=== PATIENT | female | born 1965 | race Caucasian/White ===

== ENCOUNTER 2019-12-14 18:43 | Emergency (ER) | payer BC, SELFPAY ==
[2019-12-14 19:28] VITALS: BP 121/80; PULSE 94; RESP 16; TEMP 36.6; O2SAT 95; BMI 16.7
--- NOTE | 2019-12-14 19:38 | ED_ITS ---
HPI - Anxiety General: Chief Complaint: Anxiety Stated Complaint: stress Time Seen by Provider: 12/14/19 19:35 History of Present Illness: HPI narrative: Sheila is a nice 54-year-old female who comes in complaining of anxiety. She states she has generalized anxiety but it is been made worse recently from difficulty sleeping. She denies any homicidal or suicidal ideation. She states she is not depressed. She does not have a regular doctor to go see for these issues. She also relates that she injured her foot about 3 weeks ago after he was stepped on. She continues to have pain would like that evaluated as well. Associated symptoms: Deny chest pain, chills, confusion, diaphoresis, fever(s), headache(s), malaise, nausea, palpitations, syncope or vomiting Review of Systems General: Reports: other (negative unless marked) Const: Denies: fever, chills, body aches, fatigue, malaise or diaphoresis Eyes: Denies: change in vision or blurry vision ENMT: Denies: throat pain, painful swallowing, hoarseness, ear pain, ear discharge, Change in hearing or nasal discharge Card: Denies: chest pain, palpitations, irregular heart rhythm, syncope, pre- syncope, shortness of breath on exertion or shortness of breath when lying down Resp: Denies: shortness of breath, productive cough, non-productive cough, wheezing, coughing up blood or chest congestion GI: Denies: abdominal pain, nausea, vomiting, vomiting blood, coffee grounds in vomit, diarrhea, constipation, cramping, blood in stool or black tarry stool : Denies: flank pain, painful urination, urinary frequency, urinary urgency, decreased urine ouput, urinary incontinence or blood in urine Musc: Denies: neck pain, back pain, extremity pain, extremity swelling, joint swelling, joint warmth or joint stiffness Skin/Breast: Denies: rash, skin tenderness or yellow skin Neuro: Denies: headache, numbness in extremities, weakness in extremities, changes in sensation, lack of coordination, difficulty walking, dizziness, vertigo or confusion Psych: Reports: anxiety and sleeping less Endo: Denies: excessive thirst, tired all the time, cold intolerance, excessive sweating, flushing or hot flashes Christiano/Lymph: Denies: easy bruising, easy bleeding, petechiae or enlarged lymph nodes All/Imm: Denies: hives, throat swelling, tongue swelling, facial swelling or acute wheezing PFSH ED PFSH: Medical History (Updated 12/14/19 @ 20:07 by Madison Chavez) Anxiety Social History Smoking and tobacco status: current every day smoker Physical Exam Const: COMMON NORMALS: no apparent distress, oriented x3, no limitations, healthy appearing and well nourished EXAM LIMITATIONS: no altered mental status GENERAL APPEARANCE: cooperative, well kempt and well developed ORIENTATION/CONSCIOUSNESS: Yes awake HENMT: COMMON NORMALS: normocephalic, head/scalp atraumatic, hearing grossly normal bilaterally, external ears normal, EAC's normal, external nose normal and moist oral mucous membranes HEAD & SCALP: normal to inspection, normocephalic and atraumatic FACE & SINUS: normal facial exam and face symmetric NOSE: external nose normal and nares normal EXTERNAL EAR: Yes external ears normal EXTERNAL AUDITORY CANAL: EAC's normal MOUTH: oral and palatal mucosa normal and tongue normal Eye: COMMON NORMALS: PERRL, EOMs intact bilaterally, conjunctivae normal and no scleral icterus GENERAL EYE: normal appearance of both eyes and normal light reflex CONJUNCTIVA: Yes conjunctivae normal SCLERA: sclerae normal CORNEA: Yes corneas normal PUPIL: Yes PERRL DIRECT OPHTHALMOSCOPY: Yes normal light reflex Neck/C-Spine: COMMON NORMALS: full ROM, no lymphadenopathy, supple, no meningeal signs and no JVD GENERAL: Yes normal visual inspection and Yes trachea midline CERVICAL SPINE: Yes cervical ROM normal Chest: COMMONS NORMALS: inspection of chest normal and palpation of chest normal Resp: COMMON NORMALS: normal respiratory effort, no retractions, no use of accessory muscles and clear to auscultation bilaterally EFFORT & INSPECTION: Yes able to speak in complete sentences AUSCULTATION: clear to auscultation bilaterally Cardio: COMMON NORMALS: no JVD, regular rate, regular rhythm, S1 normal heart sound, S2 normal heart sound, no gallops, no clicks, no murmurs and no rub JUGULAR VENOUS DISTENTION: no JVD RATE: regular rate RHYTHM: regular rhythm HEART SOUNDS: S1 normal and S2 normal GI: COMMON NORMALS: soft to palpation, non-tender, no hepatosplenomegaly and no masses INSPECTION: Yes normal to inspection PALPATION: Yes soft and Yes no hepatosplenomegaly : COMMON NORMALS: Yes no CVA tenderness BLADDER/KIDNEY EXAM: Yes no CVA tenderness Back/Pelvis: COMMON NORMALS: no CVA tenderness, thoracic and lumbar spine normal to inspection, no thoracic nor lumbar tenderness and thoraco-lumbar ROM normal Extremity: COMMON NORMALS: normal to inspection, full ROM, normal capillary r efill, no joint enlargement, no clubbing, cyanosis or edema and no calf tenderness Neuro: COMMON NORMALS: oriented x3, CN's II-XII intact bilaterally, moves all extremities, no focal motor deficits and no sensory deficits noted MENINGEAL SIGNS: Yes no meningeal signs Psych: COMMON NORMALS: mental status grossly normal, thought process normal, cooperative, affect normal, speech normal and activity/motor behavior normal APPEARANCE: Yes well kempt SPEECH: Yes normal speech THOUGHT PROCESS: normal thought process Skin: COMMON NORMALS: no rashes or lesions noted, skin turgor normal, no jaundice, no petechiae and no mottling GENERAL SKIN EXAM: no rashes or lesions noted and turgor normal Course Vital Signs: Vital signs: Vital Signs Temperature 97.9 F 12/14/19 19:28 Pulse Rate 94 12/14/19 19:28 Respiratory Rate 16 12/14/19 19:28 Blood Pressure 121/80 12/14/19 19:28 Pulse Oximetry 95 12/14/19 19:28 MDM - Anxiety MDM Narrative: Medical decision making narrative: Patient comes in with anxiety and I will prescribe her hydroxyzine. She does not have any homicidal or suicidal ideation. Her foot is fractured and I will splint this and give her crutches and have her follow-up with orthopedics. She has no questions or concerns and she agrees to this follow-up and treatment plan. Imaging Data^: Xray Ortho: My impression: Right foot -fifth metacarpal fracture. Discharge Plan Discharge Patient Disposition: Home, Self-Care Clinical Impression: Anxiety Foot fracture, right Qualifiers: Encounter type: initial encounter Fracture type: closed Qualified Code(s): S92.901A - Unspecified fracture of right foot, initial encounter for closed fracture Condition: Stable Prescriptions: New hydroxyzine HCl 25 mg tablet 25 mg PO Q6H PRN (Reason: anxiety) Qty: 30 RF: 0 Discharge Orders: Discharge Order (Routine); Ordered 12/14/19 Ordered By: Madison N Scott Referrals: Hieu Paris DO [Physician] - 1-3 days Discharge Diet: Usual diet Discharge Activity: Limit activity as instructed Patient Instructions: Foot Fracture in Adults (ED), Anxiety (ED) Activity Restrictions/Additional Instructions: Please return to the ER immediately for any of the signs or symptoms listed on your discharge instruction sheets, worsening/changing of your symptoms, you are not getting better as quickly as expected, or for ANY other cause or concerns. Use your crutches and do not bear weight at any time on your right foot. Be certain to follow-up with Dr. Paris for definitive management of your fracture. Coding Level of Care Code ED Video Conference Specialist for Austyn Fwd Exam Comprehensive
--- NOTE | 2019-12-14 19:38 | XRR_ITS ---
PROCEDURE INFORMATION: Exam: XR Right Foot Complete Exam date and time: 12/14/2019 8:06 PM Age: 54 years old Clinical indication: Pain; Foot; Right; Additional info: Injury/pain TECHNIQUE: Imaging protocol: XR Right foot. Views: 3 or more views. COMPARISON: No relevant prior studies available. FINDINGS: Bones/joints: Oblique minimally displaced minimally angulated fracture through the midshaft 5th metatarsal. Soft tissues: Normal. XR/XR foot RT min 3V* [id number] IMPRESSION: Oblique minimally displaced minimally angulated fracture through the midshaft 5th metatarsal.
--- NOTE | 2019-12-14 21:05 | PC.NURSE ---
short leg OCL spint applied to right ankle without difficulty. Good pulses and sensation noted pre and post application. Teaching complete on crutch use, pain management, and swelling and circulation checks at home with questions asked and answered.
[2019-12-14 21:18] VITALS: PULSE 88; RESP 16; O2SAT 96
--- NOTE | 2019-12-17 10:35 | DCPLANNER ---
information manager had message to schedule a follow up appointment for patient with ortho. information manager called the ortho clinic, spoke with Alejandrina, gave clinic patients information. information manager was told that patients information would be printed and reviewed. Clinic will call case packer and sealer and patient with appointment information.
--- NOTE | 2019-12-21 08:54 | DCPLANNER ---
Patient had a follow up appointment scheduled for 12.17.19 with ortho. Patient did attend the appointment.
== END 2019-12-14 21:18 | disposition home or self-care (01) ==
PROVIDERS: Emergency Provider Emergency Medicine
DX: S92.351A Displaced fracture of fifth metatarsal bone, right foot, initial encounter for closed fracture (principal); F41.9 Anxiety disorder, unspecified; F17.200 Nicotine dependence, unspecified, uncomplicated; X58.XXXA Exposure to other specified factors, initial encounter
CPT/HCPCS: 12345; 29515; 73630; 99281; 99283; E0114

== ENCOUNTER 2019-12-17 16:37 | Outpatient (CLI) | payer BC, SELFPAY | END 2019-12-17 16:38 | disposition home or self-care (01) | LOC: SPT 16:38 | PROVIDERS: Visit Provider Podiatrist Foot & Ankle Surgery | DX: Z46.89 Encounter for fitting and adjustment of other specified devices (principal); S92.354D Nondisplaced fracture of fifth metatarsal bone, right foot, subsequent encounter for fracture with routine healing; X58.XXXD Exposure to other specified factors, subsequent encounter | CPT/HCPCS: L4361 ==